=== PATIENT | male | born 1990 | race Asian ===

== ENCOUNTER 2023-03-29 01:28 | Emergency (ER) | payer MEDICAID ==
[~2023-03-29] VITALS: Ht 182.9 cm; Wt 113.4 kg
--- NOTE | 2023-03-29 01:30 | NUR ---
Shannon davis in EDM - 03/29/23 at 0638 by [email or web address] PATIENT ARRIVED VIA ALS FOR REPORTED SEIZURE AT HOME LASTING 1 MINUTE. PATIENT ARRIVED WEARING NON-REBREATHER MASK AT 15L. PATIENT CONTINUES TO REMAIN IN POST - ICTAL STATE.
--- NOTE | 2023-03-29 01:30 | NUR ---
PATIENT ARRIVED VIA ALS FOR REPORTED SEIZURE AT HOME LASTING 1 MINUTE. PATIENT ARRIVED WEARING NON-REBREATHER MASK AT 15L. PATIENT CONTINUES TO REMAIN IN POST - ICTAL STATE AND IS UNABLE TO ANSWER QUESTIONS AND RESPOND TO MD AND NURSES AT BEDSIDE . PATIENT PLACED ON MONITOR AND IV LINE STARTED
[2023-03-29 01:51] LABS: BASOPHILS # (AUTO) 0.2 K/uL (0.00-0.22); BASOPHILS % (AUTO) 1.2 % (0.0-2.0); EOSINOPHILS # (AUTO) 0.3 K/uL (0-0.4); EOSINOPHILS % (AUTO) 1.9 % (0.0-4.0); HEMATOCRIT 45.2 % (36-52); HEMOGLOBIN 14.7 g/dL (12.0-18.0); LYMPHOCYTES % (AUTO) 37.6 % (20.5-51.1); MEAN CORPUSCULAR HEMOGLOBIN 29 pg (27-31); MEAN CORPUSCULAR HGB CONC 33 g/dL (33-37); MEAN CORPUSCULAR VOLUME 90.3 fL (80-94); MONOCYTES # (AUTO) 1.5 K/uL (0.8-1.0); MONOCYTES % (AUTO) 11.2 % (1.7-9.3); NEUTROPHILS # (AUTO) 6.5 K/uL (1.8-7.7); NEUTROPHILS % (AUTO) 48.1 % (42.2-75.2); PLATELET COUNT (AUTO) 317 K/uL (140-450); RED CELL DISTRIBUTION WIDTH 13.4 % (11.6-13.7); WHITE BLOOD COUNT (AUTO) 13.4 K/uL (4.8-10.8)
[2023-03-29 02:01] VITALS: BP 141/83
[2023-03-29 02:13] LABS: ALBUMIN 3.6 g/dL (3.4-5.0); ANION GAP 20.3 (8-16); ASPARTATE AMINOTRANSFERASE 28 U/L (15-37); CARBON DIOXIDE 21.9 mmol/L (21-32); CHLORIDE 104 mmol/L (98-107); CREATININE 1.5 mg/dL (0.6-1.3); GFR ARICAN-AMERICAN 70 mL/min (>90); GLUCOSE 170 mg/dL (74-106); MAGNESIUM 1.9 mg/dL (1.8-2.4); POTASSIUM 3.2 mmol/L (3.5-5.1); SODIUM SERUM 143 mmol/L (136-145); TOTAL BILIRUBIN 1.1 mg/dL (0.0-1.0); UREA NITROGEN, BLOOD 25 mg/dL (7-18); VALPROIC ACID < 3 ug/ml (50-100)
[2023-03-29] MEDS ORDERED: LORazepam 2 MG/ML VIAL IVP ONE (02:30)
[2023-03-29] MEDS ORDERED: VALPROIC ACID 250 MG/5 ML UDC PO STA (03:19)
--- NOTE | 2023-03-29 04:00 | NUR ---
MD AT BEDSIDE, PATIENT INFORMED PROVIDER THAT HE TOOK 30 METHOCARBOMAL TABLETS. MD IS REQUESTING FOR POISON CONTROL TO BE CONTACTED
--- NOTE | 2023-03-29 04:15 | NUR ---
PHONE CALL PLACED TO POISON CONTROL, , SPOKE WITH SHRAVAN. PROVIDED BACKGROUND ON PATIENT SITUATION. PER MEGAN, PATIENT NEEDS TO BE MONITORED FOR 6HRS, SALCYLATE, ACETAMIOPHEN, AND ETHANOL LEVELS, FULL TOX SCREEN, AND PSYCH CONSULT. INFORMED PROVIDER OF RECCOMENDATIONS FROM POISON CONTROL.
[2023-03-29] MEDS ORDERED: NACL 0.9% 1,000 ML IV ONE (04:20)
[2023-03-29] MEDS ORDERED: POTASSIUM CHLORIDE 10 MEQ TABER PO ONE (04:20)
[2023-03-29] MEDS ORDERED: levETIRAcetam 500 MG TAB PO ONE (04:20)
--- NOTE | 2023-03-29 05:09 | NUR ---
DR WOODY FOR TELEPSYCH
--- NOTE | 2023-03-29 05:42 | NUR ---
DR BURNETTE TELEPSYCH AT BEDSIDE WITH PT
[2023-03-29 06:00] LABS: ACETAMINOPHEN < 0.5 ug/ml (10-30); SALICYLATE < 2.8 mg/dL (2.8-20.0)
--- NOTE | 2023-03-29 07:22 | NUR ---
Pt report given to ERIK. Transfer of care at this time.
[2023-03-29] MEDS ORDERED: IBUPROFEN 400 MG TAB PO ONE (07:55)
--- NOTE | 2023-03-29 08:17 | NUR ---
Patient discharged with v/s stable. Written and verbal after care instructions given and explained. Patient verbalized understanding. Ambulatory with steady gait. All questions addressed prior to discharge. Advised to follow up with PMD. MENTAL HEALTH RESOURCES PROVIDED
--- NOTE | 2023-03-29 09:13 | NUR ---
RECEIVED CALL FROM JANNIE AT POISON CONTROL. SPOKE WITH JANNIE, INFORMED HER THAT PT WAS DISCHARGED BY DR HELMS. CASE #[id number]
[2023-03-29 09:31] LABS: BARBITURATE, URINE NEGATIVE ng/ml (NEG <=200); BENZODIAZEPINE, URINE NEGATIVE ng/mL (NEG <=200); CANNABINOID, URINE POSITIVE ng/mL (NEG <=50); COCAINE, URINE NEGATIVE ng/mL (NEG <=300); OPIATE, URINE NEGATIVE ng/mL (NEG <=2000); PHENCYCLIDINE SCREEN,URINE NEGATIVE ng/mL (NEG <=25)
== END 2023-03-29 08:16 | disposition home or self-care (01) ==
LOC: MED 01:28
DX: S00.83XA Contusion of other part of head, initial encounter (principal); T42.8X2A Poisoning by antiparkinsonism drugs and other central muscle-tone depressants, intentional self-harm, initial encounter; R41.82 Altered mental status, unspecified; R56.9 Unspecified convulsions; E87.6 Hypokalemia; Z20.822 Contact with and (suspected) exposure to COVID-19; I10 Essential (primary) hypertension; Z79.899 Other long term (current) drug therapy; Z91.141 Patient's other noncompliance with medication regimen due to financial hardship; Z79.1 Long term (current) use of non-steroidal anti-inflammatories (NSAID); W18.39XA Other fall on same level, initial encounter; Y92.89 Other specified places as the place of occurrence of the external cause; Y93.89 Activity, other specified; Y99.8 Other external cause status
CPT/HCPCS: 36415; 70450; 71045; 72125; 73080; 80053; 80305; 83735; 84484; 85025; 87426; 93005; 96361; 96374; 99285; G0480; G0482; J2060; J7030; Q0092

== ENCOUNTER 2023-04-03 11:24 | Emergency (ER) | payer MEDICAID ==
[~2023-04-03] VITALS: Ht 182.9 cm; Wt 113.4 kg
[2023-04-03 11:55] VITALS: BP 110/76
[2023-04-03] MEDS ORDERED: KETOROLAC 30 MG/ML VIAL IM ONE (14:00)
[2023-04-03] MEDS ORDERED: KETOROLAC 30 MG/ML VIAL ONE (15:06)
[2023-04-03] MEDS ORDERED: NAPR-54 PO ×2 (15:44→17:37)
[2023-04-03 17:11] VITALS: BP 114/76
--- NOTE | 2023-04-03 17:11 | NUR ---
Patient discharged with v/s stable. Written and verbal after care instructions FOR RIB CONTUSION given and explained. Patient alert, oriented and verbalized understanding of instructions. Ambulatory with steady gait. All questions addressed prior to discharge. ID band removed. Patient advised to follow up with PMD. Rx of NAPROXEN given. Opportunity to ask questions provided and answered.
== END 2023-04-03 17:11 | disposition home or self-care (01) ==
LOC: MED 11:24
DX: S29.011A Strain of muscle and tendon of front wall of thorax, initial encounter (principal); R22.33 Localized swelling, mass and lump, upper limb, bilateral; R22.0 Localized swelling, mass and lump, head; R22.43 Localized swelling, mass and lump, lower limb, bilateral; R56.9 Unspecified convulsions; I10 Essential (primary) hypertension; Z86.69 Personal history of other diseases of the nervous system and sense organs; Z79.1 Long term (current) use of non-steroidal anti-inflammatories (NSAID); W06.XXXA Fall from bed, initial encounter; Y93.89 Activity, other specified; Y92.89 Other specified places as the place of occurrence of the external cause; Y99.8 Other external cause status
CPT/HCPCS: 71101; 96372; 99283; J1885; Q0092